=== PATIENT | male | born 1965 | race Caucasian/White ===

== ENCOUNTER 2021-11-18 00:20 | Inpatient (IN) | payer MEDICAID ==
[~2021-11-18] VITALS: Ht 175.3 cm; Wt 106.0 kg
[~2021-11-18 00:20] MED LIST: CYCL-120 PO
[2021-11-18] MEDS ORDERED: dexamethasone inj 6 MG in normal saline 50ml IV soln 50 ML IV ONE (00:30)
[2021-11-18] MEDS ORDERED: acetaminophen 325mg tablet PO ONE (00:45)
[2021-11-18 01:09] LABS: BASOPHILS # (AUTO) 0.1 X10'3 (0-0.2); BASOPHILS % (AUTO) 1.4 % (0-1); EOSINOPHILS # (AUTO) 0.3 X10'3 (0-0.9); EOSINOPHILS % (AUTO) 2.9 % (0-6); HEMATOCRIT 44.4 % (42.0-52.0); HEMOGLOBIN 15.6 g/dl (14.0-17.9); LYMPHOCYTES # (AUTO) 0.5 X10'3 (1.1-4.8); LYMPHOCYTES % (AUTO) 5.2 % (21-51); MEAN CORPUSCULAR HEMOGLOBIN 29.1 PG (27.0-31.0); MEAN CORPUSCULAR HGB CONC 35.1 g/dL (33.0-36.5); MEAN CORPUSCULAR VOLUME 83.1 FL (78-98); MEAN PLATELET VOLUME 8.2 FL (7.4-10.4); MONOCYTES # (AUTO) 0.5 X10'3 (0-0.9); MONOCYTES % (AUTO) 4.9 % (2-12); NEUTROPHILS # (AUTO) 8.7 X10'3 (1.8-7.7); NEUTROPHILS % (AUTO) 85.6 % (42-75); PLATELET COUNT 557 X10'3 (140-440); RED BLOOD COUNT 5.35 X10'6 (4.70-6.10); RED CELL DISTRIBUTION WIDTH 14.2 % (11.5-14.5); WHITE BLOOD COUNT 10.2 X10'3 (4.5-11.0)
[2021-11-18 01:18] LABS: D-DIMER 1.83 MG/L FEU (0-0.50)
[2021-11-18 01:21] LABS: ALANINE AMINOTRANSFERASE 37 U/L (12-78); ALBUMIN 2.5 G/DL (3.4-5.0); ALBUMIN/GLOBULIN RATIO 0.5 (1.1-1.5); ALKALINE PHOSPHATASE 77 IU/L (46-116); ANION GAP 10 (8-16); ASPARTATE AMINO TRANSFERASE 34 U/L (10-37); BILIRUBIN,TOTAL 0.5 MG/DL (0.1-1.0); BLOOD UREA NITROGEN 18 MG/DL (7-18); BUN/CREATININE RATIO 18.8 (5.4-32.0); CALCIUM 8.5 MG/DL (8.5-10.1); CHLORIDE 101 MMOL/L (99-107); CREATININE 0.96 MG/DL (0.60-1.10); GLUCOSE 130 MG/DL (70-104); POTASSIUM 3.9 MMOL/L (3.5-5.1); SODIUM 138 MMOL/L (135-145); TOTAL CARBON DIOXIDE 26.9 MMOL/L (24-32); TOTAL PROTEIN 7.2 G/DL (6.4-8.2); eGFR 82 ML/MIN
[2021-11-18 01:28] LABS: LACTATE DEHYDROGENASE 390 U/L (85-227); MAGNESIUM 1.8 MG/DL (1.5-2.4)
[2021-11-18] MEDS ORDERED: iohexol 350MG/ML 100ml bottle IV ONE (01:58)
[2021-11-18 02:34] LABS: TOTAL CELLS COUNTED 100
[2021-11-18 02:35] LABS: PLATELET ESTIMATE INCREASED
[2021-11-18 02:40] LABS: LARGE PLATELETS FEW
[2021-11-18] MEDS ORDERED: bisacodyl 10mg suppository rectal RC PRN (02:55)
[2021-11-18] MEDS ORDERED: acetaminophen 650mg rectal suppository RC PRN (02:55)
[2021-11-18] MEDS ORDERED: diphenhydrAMINE 50 mg/ml inj IV PRN (02:55)
[2021-11-18] MEDS ORDERED: ondansetron 4mg rapidly disintigrating tab PO PRN (02:55)
[2021-11-18] MEDS ORDERED: magnesium hydroxide 30ml (MOM) UD suspension PO PRN (02:55)
[2021-11-18] MEDS ORDERED: diphenhydrAMINE 25mg capsule PO PRN (02:55)
[2021-11-18] MEDS ORDERED: mag hydrox/Alum hydrox/simeth 30ml oral suspension PO PRN (02:55)
[2021-11-18] MEDS ORDERED: ipratropium/albuterol 3ml nebule NEB PRN (02:55)
[2021-11-18] MEDS ORDERED: acetaminophen 325mg tablet PO PRN ×2 (02:55)
[2021-11-18] MEDS ORDERED: morphine 2 MG/ML inj. syringe IV PRN ×2 (02:55)
[2021-11-18] MEDS ORDERED: HYDROcodone/acetaminophen 10/325mg tab PO PRN (02:55)
[2021-11-18] MEDS ORDERED: ondansetron/PF 4mg/2ml inj IV PRN (02:55)
[2021-11-18] MEDS ORDERED: dextrose 50%-water 50ml dispensing syringe IV PRN ×2 (03:00)
[2021-11-18] MEDS ORDERED: ALBUTEROL INHALER 1 PUFF/90 MCG INHALER IH PRN (03:00)
[2021-11-18] MEDS ORDERED: MESSAGE TO PHARMACY PO ONE (03:00)
[2021-11-18] MEDS ORDERED: glucagon, human recombinant 1mg kit SUBCUT PRN (03:00)
[2021-11-18] MEDS ORDERED: dextrose ORAL solution 15 GM/59 ML bottle PO PRN ×2 (03:00)
[2021-11-18] MEDS ORDERED: METF-436 PO (03:08)
[2021-11-18] MEDS ORDERED: GABA300C PO (03:08)
[2021-11-18] MEDS: normal saline 1000ml 1,000 ML IV SCH ×2 (03:15→09:01)
[2021-11-18 04:11] LABS: HEMOGLOBIN A1C 7.3 % (4.5-6.2)
[2021-11-18 04:14] LABS: APTT 30 SECONDS (22-32)
[2021-11-18 04:20] LABS: PHOSPHORUS 3.1 MG/DL (2.3-4.5)
[2021-11-18 04:51] LABS: CREATINE KINASE 37 U/L (39-308); LIPASE 107 U/L (73-393)
[2021-11-18] MEDS ORDERED: dexamethasone 4mg/ml inj IV SCH (08:00)
[2021-11-18] MEDS: docusate sod 100mg capsule PO SCH ×2 (08:00→19:48)
[2021-11-18 08:24] LABS: CLARITY,URINE CLEAR (Clear); COLOR,URINE YELLOW (Yellow); GLUCOSE, URINE 100 mg/dl (Neg); KETONES,URINE NEGATIVE (Neg); LEUKOCYTE ESTERASE ,URINE NEGATIVE (Neg); NITRITES, URINE NEGATIVE (Neg); OCCULT BLOOD,URINE NEGATIVE (Neg); PH,URINE 6.5 (4.8-8.0); PROTEIN,URINE TRACE mg/dl (Neg); UROBILINOGEN,URINE >=8.0 E.U/dL (0.2-1.0)
[2021-11-18 08:28] LABS: UA COLLECTION TYPE NON-SPECIFIED
[2021-11-18 08:29] LABS: BACTERIA,URINE FEW /HPF (Neg); CAL OXALATE CRYSTALS 2+ /HPF (NEGATIVE); HYALINE CASTS 0-3 /LPF (NEGATIVE); MUCUS STRANDS FEW /LPF (Neg); SQUAMOUS EPITHELIAL CELL,UR FEW /LPF (FEW)
[2021-11-18 08:30] LABS: RBC,URINE 0-2 /HPF (0-2); WBC,URINE 0-4 /HPF (0-4)
[2021-11-18] MEDS: CefTRIAXone/D5W-Rocephin 1gm 50 ML IV SCH (08:56)
[2021-11-18] MEDS: enoxaparin 60mg/0.6ml syringe SUBCUT SCH ×2 (08:56→20:04)
[2021-11-18] MEDS: pantoprazole 40mg Tablet.DR PO SCH (08:57)
[2021-11-18] MEDS: gabapentin 300mg capsule PO SCH ×2 (08:57→20:04)
[2021-11-18 09:00] VITALS: BP 111/65
[2021-11-18] MEDS: azithromycin/NS 500mg/250ml 250 ML IV SCH (09:54)
[2021-11-18 10:10] VITALS: BP 115/70
[2021-11-18] MEDS: dexamethasone inj 6 MG in normal saline 50ml IV soln 50 ML IV SCH ×2 (11:40→20:04)
[2021-11-18] MEDS ORDERED: FLU VACC QS2021-22(6MOS UP)/PF 60 MCG/0.5 ML SYRINGE IM ONE (12:50)
[2021-11-18] MEDS ORDERED: COVID-19 VACC, MRNA(PFIZER)/PF--BNT162b2 syringe IMVAC ONE (12:50)
[2021-11-18 14:06] VITALS: BP 130/70
--- NOTE | 2021-11-18 15:03 | NUR ---
DM Consult "New DM- pt states he was 'prediabetic' before": Pt admit DX COVID-19 bilateral PNA, acute respiratory failure secondary to hypoxia, T2DM A1C 7.3%, HTN, and chronic pain syndrome per EMR. SÁNCHEZ d/w RN who reports pt not seen by physician yet for official DM DX and pt reports typically eats whatever he wants at home. Noted pt takes metformin BID [employer] per EMR. Pt PO 100% initial meals on 4L NC per EMR; double protein BIDLD added to meals for satiety; dietary notified. [facility] 11/16. Will monitor for DM ed needs following physician DX and further nutrition intervention needs this admit. Rec: 1. continue carb controlled diet; double protein BIDLD for satiety 2. routine bowel care 3. weekly wts Addendum: 11/18/21 at [address] Amended: Links added.
--- NOTE | 2021-11-18 15:45 | NUR ---
Stepdaughter updated x 1 today
[2021-11-18 18:00] VITALS: BP 134/76
--- NOTE | 2021-11-18 18:12 | NUR ---
Gave report to Isabella BONILLA
[2021-11-18] MEDS: insulin glargine (Lantus) pen - multi-dose SQ SCH (21:00)
[2021-11-18 22:00] VITALS: BP 121/59
[2021-11-18] MEDS: temazepam 15mg capsule PO PRN (22:35)
[2021-11-19 02:00] VITALS: BP 132/68
--- NOTE | 2021-11-19 03:00 | NUR ---
Took over care of patient at this time
[2021-11-19 06:00] VITALS: BP 128/70
--- NOTE | 2021-11-19 06:29 | NUR ---
Problems reprioritized. Patient report given, questions answered & plan of care reviewed with Kristin BONILLA. Addendum: 11/19/21 at 0630 by Mickie Vincent RN Problems reprioritized. Patient report given, questions answered & plan of care reviewed with Cuong BONILLA.
[2021-11-19 06:42] LABS: BASOPHILS % (AUTO) 0.3 % (0-1); EOSINOPHILS % (AUTO) 0.2 % (0-6); HEMOGLOBIN 11.3 g/dl (14.0-17.9); LYMPHOCYTES # (AUTO) 0.5 X10'3 (1.1-4.8); LYMPHOCYTES % (AUTO) 6.1 % (21-51); MEAN CORPUSCULAR HEMOGLOBIN 28.8 PG (27.0-31.0); MEAN CORPUSCULAR HGB CONC 34.3 g/dL (33.0-36.5); MEAN CORPUSCULAR VOLUME 83.7 FL (78-98); MEAN PLATELET VOLUME 8.4 FL (7.4-10.4); MONOCYTES # (AUTO) 0.5 X10'3 (0-0.9); MONOCYTES % (AUTO) 5.2 % (2-12); NEUTROPHILS # (AUTO) 7.9 X10'3 (1.8-7.7); NEUTROPHILS % (AUTO) 88.2 % (42-75); PLATELET COUNT 451 X10'3 (140-440); RED BLOOD COUNT 3.94 X10'6 (4.70-6.10); RED CELL DISTRIBUTION WIDTH 14.1 % (11.5-14.5); WHITE BLOOD COUNT 8.9 X10'3 (4.5-11.0)
[2021-11-19 06:43] LABS: D-DIMER 2.26 MG/L FEU (0-0.50)
[2021-11-19] MEDS: enoxaparin 60mg/0.6ml syringe SUBCUT SCH ×2 (07:56→20:04)
[2021-11-19] MEDS: azithromycin/NS 500mg/250ml 250 ML IV SCH (07:56)
[2021-11-19] MEDS: nicotine 21mg patch - 24 hr TD SCH (07:56)
[2021-11-19] MEDS: gabapentin 300mg capsule PO SCH ×2 (07:56→20:03)
[2021-11-19] MEDS: pantoprazole 40mg Tablet.DR PO SCH (07:56)
[2021-11-19] MEDS: docusate sod 100mg capsule PO SCH ×2 (07:56→20:03)
[2021-11-19] MEDS: CefTRIAXone/D5W-Rocephin 1gm 50 ML IV SCH (07:56)
[2021-11-19] MEDS: dexamethasone inj 6 MG in normal saline 50ml IV soln 50 ML IV SCH ×2 (07:57→20:02)
[2021-11-19] MEDS: insulin Lispro (HumaLOG) vial - multi-dose SQ SCH ×3 (08:38→20:00)
[2021-11-19] MEDS: normal saline 1000ml 1,000 ML IV SCH ×3 (08:55→18:55)
[2021-11-19 09:40] LABS: ALANINE AMINOTRANSFERASE 29 U/L (12-78); ALBUMIN 2.2 G/DL (3.4-5.0); ALBUMIN/GLOBULIN RATIO 0.5 (1.1-1.5); ALKALINE PHOSPHATASE 62 IU/L (46-116); ANION GAP 7 (8-16); ASPARTATE AMINO TRANSFERASE 22 U/L (10-37); BILIRUBIN,TOTAL 0.2 MG/DL (0.1-1.0); BLOOD UREA NITROGEN 19 MG/DL (7-18); BUN/CREATININE RATIO 24.1 (5.4-32.0); C-REACTIVE PROTEIN 5.23 MG/DL (0.0-0.5); CALCIUM 8.3 MG/DL (8.5-10.1); CHLORIDE 107 MMOL/L (99-107); CHOL/HDL RATIO 4.9 (0.00-4.99); CHOLESTEROL 122 MG/DL (0-200); CREATININE 0.79 MG/DL (0.60-1.10); GLUCOSE 182 MG/DL (70-104); HDL CHOLESTEROL 25 MG/DL (35-60); LDL CHOLESTEROL 79 MG/DL (50-100); POTASSIUM 4.3 MMOL/L (3.5-5.1); SODIUM 140 MMOL/L (135-145); TOTAL CARBON DIOXIDE 25.6 MMOL/L (24-32); TOTAL PROTEIN 6.3 G/DL (6.4-8.2); TRIGLYCERIDES 116 MG/DL (20-135); eGFR > 90 ML/MIN
[2021-11-19 10:00] VITALS: BP 133/71
[2021-11-19 15:00] VITALS: BP 134/70
--- NOTE | 2021-11-19 15:23 | NUR ---
F/u 11/19: SÁNCHEZ TC to RN regarding if pt aware of new DM DX by physician. RN reports pt still believes he's pre-diabetic not aware of new DM at this time. RN reports pt ordered pizza last night likely why only 25% dinner intake in EMR. Would benefit from DM ed once pt notified of DM DX by physician. Addendum: 11/19/21 at [address] Amended: Links added.
--- NOTE | 2021-11-19 16:30 | NUR ---
Friend dropped off pt's wallet with credit card and debit card at [employer] which was brought to pt's room by nursing staff. Pt said he will keep it at bedside for now as he needs to pay his bills.
[2021-11-19 18:00] VITALS: BP 139/69
[2021-11-19] MEDS: lactobacillus rhamnosus 10,000 MMU CELLS/CAPSULE PO SCH (20:03)
[2021-11-19 22:00] VITALS: BP 152/86
[2021-11-19] MEDS: insulin glargine (Lantus) pen - multi-dose SQ SCH (23:02)
[2021-11-20 02:00] VITALS: BP 131/73
[2021-11-20] MEDS: normal saline 1000ml 1,000 ML IV SCH (04:55)
[2021-11-20 06:00] VITALS: BP 137/73
--- NOTE | 2021-11-20 06:30 | NUR ---
Patient in room [facility]TH[facility] 4023. I have received report from CHAD Hsu and had the opportunity to ask questions and assume patient care.
[2021-11-20 07:00] LABS: BASOPHILS # (AUTO) 0.1 X10'3 (0-0.2); BASOPHILS % (AUTO) 0.7 % (0-1); EOSINOPHILS % (AUTO) 0.1 % (0-6); HEMATOCRIT 39.2 % (42.0-52.0); HEMOGLOBIN 13.4 g/dl (14.0-17.9); MEAN CORPUSCULAR HEMOGLOBIN 28.3 PG (27.0-31.0); MEAN CORPUSCULAR VOLUME 83.1 FL (78-98); MEAN PLATELET VOLUME 8.6 FL (7.4-10.4); MONOCYTES # (AUTO) 0.8 X10'3 (0-0.9); MONOCYTES % (AUTO) 6.5 % (2-12); NEUTROPHILS # (AUTO) 10.4 X10'3 (1.8-7.7); NEUTROPHILS % (AUTO) 84.7 % (42-75); PLATELET COUNT 556 X10'3 (140-440); RED BLOOD COUNT 4.72 X10'6 (4.70-6.10); RED CELL DISTRIBUTION WIDTH 14.1 % (11.5-14.5); WHITE BLOOD COUNT 12.3 X10'3 (4.5-11.0)
[2021-11-20 07:11] LABS: ALANINE AMINOTRANSFERASE 36 U/L (12-78); ALBUMIN 2.2 G/DL (3.4-5.0); ALBUMIN/GLOBULIN RATIO 0.6 (1.1-1.5); ALKALINE PHOSPHATASE 70 IU/L (46-116); ANION GAP 10 (8-16); ASPARTATE AMINO TRANSFERASE 19 U/L (10-37); BILIRUBIN,TOTAL 0.3 MG/DL (0.1-1.0); BLOOD UREA NITROGEN 21 MG/DL (7-18); BUN/CREATININE RATIO 30.4 (5.4-32.0); C-REACTIVE PROTEIN 1.84 MG/DL (0.0-0.5); CALCIUM 8.6 MG/DL (8.5-10.1); CHLORIDE 109 MMOL/L (99-107); CREATININE 0.69 MG/DL (0.60-1.10); GLUCOSE 190 MG/DL (70-104); POTASSIUM 4.2 MMOL/L (3.5-5.1); SODIUM 141 MMOL/L (135-145); TOTAL CARBON DIOXIDE 22.1 MMOL/L (24-32); TOTAL PROTEIN 6.1 G/DL (6.4-8.2); eGFR > 90 ML/MIN
[2021-11-20] MEDS: CefTRIAXone/D5W-Rocephin 1gm 50 ML IV SCH (08:09)
[2021-11-20] MEDS: pantoprazole 40mg Tablet.DR PO SCH (08:09)
[2021-11-20] MEDS: docusate sod 100mg capsule PO SCH ×2 (08:09→21:27)
[2021-11-20] MEDS: dexamethasone inj 6 MG in normal saline 50ml IV soln 50 ML IV SCH ×2 (08:09→21:27)
[2021-11-20] MEDS: nicotine 21mg patch - 24 hr TD SCH (08:09)
[2021-11-20] MEDS: lactobacillus rhamnosus 10,000 MMU CELLS/CAPSULE PO SCH ×2 (08:09→21:28)
[2021-11-20] MEDS: enoxaparin 60mg/0.6ml syringe SUBCUT SCH (08:09)
[2021-11-20] MEDS: gabapentin 300mg capsule PO SCH ×2 (08:09→21:28)
[2021-11-20] MEDS: insulin Lispro (HumaLOG) vial - multi-dose SQ SCH ×3 (09:53→19:04)
[2021-11-20] MEDS ORDERED: pneumococcal 23-VAL P-sac vacc 25 mcg/0.5ml vial IMVAC ONE (10:00)
[2021-11-20] MEDS ORDERED: FLU VACC QS2021-22(6MOS UP)/PF 60 MCG/0.5 ML SYRINGE IM ONE (10:00)
[2021-11-20 11:00] VITALS: BP 134/72
[2021-11-20] MEDS: HYDROcodone/acetaminophen 5mg/325mg tablet PO PRN (13:23)
[2021-11-20 15:00] VITALS: BP 149/80
[2021-11-20 17:36] VITALS: BP 133/86
--- NOTE | 2021-11-20 18:24 | NUR ---
Problems reprioritized. Patient report given, questions answered & plan of care reviewed with CHAD Donahue.
[2021-11-20] MEDS: enoxaparin 40mg/0.4ml syringe SUBCUT SCH (21:28)
[2021-11-20] MEDS: insulin glargine (Lantus) pen - multi-dose SQ SCH (21:34)
[2021-11-20 22:00] VITALS: BP 141/82
[2021-11-21 02:00] VITALS: BP 127/68
[2021-11-21] MEDS: normal saline 1000ml 1,000 ML IV SCH ×2 (05:24→16:30)
[2021-11-21 06:10] VITALS: BP 112/71
--- NOTE | 2021-11-21 06:17 | NUR ---
Problems reprioritized. Patient report given, questions answered & plan of care reviewed with CHAD SZYMANSKI.
--- NOTE | 2021-11-21 06:30 | NUR ---
Patient in room ORTHO 4023. I have received report from Neena BONILLA and had the opportunity to ask questions and assume patient care.
[2021-11-21 07:31] LABS: D-DIMER 1.99 MG/L FEU (0-0.50)
[2021-11-21 07:32] LABS: BASOPHILS # (AUTO) 0.1 X10'3 (0-0.2); BASOPHILS % (AUTO) 0.8 % (0-1); EOSINOPHILS % (AUTO) 0.1 % (0-6); HEMATOCRIT 44.2 % (42.0-52.0); HEMOGLOBIN 15.2 g/dl (14.0-17.9); LYMPHOCYTES # (AUTO) 1.2 X10'3 (1.1-4.8); LYMPHOCYTES % (AUTO) 11.8 % (21-51); MEAN CORPUSCULAR HEMOGLOBIN 28.7 PG (27.0-31.0); MEAN CORPUSCULAR HGB CONC 34.3 g/dL (33.0-36.5); MEAN CORPUSCULAR VOLUME 83.7 FL (78-98); MEAN PLATELET VOLUME 8.4 FL (7.4-10.4); MONOCYTES # (AUTO) 0.8 X10'3 (0-0.9); MONOCYTES % (AUTO) 7.7 % (2-12); NEUTROPHILS # (AUTO) 8.2 X10'3 (1.8-7.7); NEUTROPHILS % (AUTO) 79.6 % (42-75); PLATELET COUNT 558 X10'3 (140-440); RED BLOOD COUNT 5.28 X10'6 (4.70-6.10); RED CELL DISTRIBUTION WIDTH 14.4 % (11.5-14.5); WHITE BLOOD COUNT 10.3 X10'3 (4.5-11.0)
[2021-11-21] MEDS: gabapentin 300mg capsule PO SCH ×2 (07:35→21:00)
[2021-11-21] MEDS: CefTRIAXone/D5W-Rocephin 1gm 50 ML IV SCH (07:35)
[2021-11-21] MEDS: enoxaparin 40mg/0.4ml syringe SUBCUT SCH ×2 (07:35→21:00)
[2021-11-21] MEDS: nicotine 21mg patch - 24 hr TD SCH (07:35)
[2021-11-21] MEDS: dexamethasone inj 6 MG in normal saline 50ml IV soln 50 ML IV SCH ×2 (07:35→21:00)
[2021-11-21] MEDS: docusate sod 100mg capsule PO SCH ×2 (07:36→21:00)
[2021-11-21] MEDS: lactobacillus rhamnosus 10,000 MMU CELLS/CAPSULE PO SCH ×2 (07:36→21:00)
[2021-11-21] MEDS: pantoprazole 40mg Tablet.DR PO SCH (07:36)
[2021-11-21 07:54] LABS: ALANINE AMINOTRANSFERASE 70 U/L (12-78); ALBUMIN 2.5 G/DL (3.4-5.0); ALBUMIN/GLOBULIN RATIO 0.6 (1.1-1.5); ALKALINE PHOSPHATASE 67 IU/L (46-116); ANION GAP 9 (8-16); ASPARTATE AMINO TRANSFERASE 42 U/L (10-37); BILIRUBIN,TOTAL 0.4 MG/DL (0.1-1.0); BLOOD UREA NITROGEN 18 MG/DL (7-18); BUN/CREATININE RATIO 22.2 (5.4-32.0); C-REACTIVE PROTEIN 0.76 MG/DL (0.0-0.5); CALCIUM 8.9 MG/DL (8.5-10.1); CHLORIDE 106 MMOL/L (99-107); CREATININE 0.81 MG/DL (0.60-1.10); GLUCOSE 120 MG/DL (70-104); POTASSIUM 4.9 MMOL/L (3.5-5.1); SODIUM 143 MMOL/L (135-145); TOTAL CARBON DIOXIDE 27.8 MMOL/L (24-32); eGFR > 90 ML/MIN
[2021-11-21] MEDS: insulin Lispro (HumaLOG) vial - multi-dose SQ SCH ×3 (09:30→19:12)
[2021-11-21 10:00] VITALS: BP 116/74
[2021-11-21 14:00] VITALS: BP 133/79
[2021-11-21] MEDS: levoFLOXACIN-Levaquin 500mg/D5 100 ML IV SCH (16:32)
[2021-11-21 18:00] VITALS: BP 133/82
[2021-11-21] MEDS: HYDROcodone/acetaminophen 5mg/325mg tablet PO PRN (19:25)
[2021-11-21] MEDS: temazepam 15mg capsule PO PRN (21:00)
[2021-11-21] MEDS: insulin glargine (Lantus) pen - multi-dose SQ SCH (21:09)
[2021-11-21 22:00] VITALS: BP 124/91
[2021-11-22 02:00] VITALS: BP 132/76
[2021-11-22] MEDS: normal saline 1000ml 1,000 ML IV SCH ×2 (04:05→06:55)
[2021-11-22 06:00] VITALS: BP 136/80
--- NOTE | 2021-11-22 06:28 | NUR ---
Problems reprioritized. Patient report given, questions answered & plan of care reviewed with CHAD SULLIVAN.
--- NOTE | 2021-11-22 06:30 | NUR ---
Patient in room ORTHO 4023B. I have received report from CHAD Chaudhary and had the opportunity to ask questions and assume patient care.
[2021-11-22] MEDS: levoFLOXACIN-Levaquin 500mg/D5 100 ML IV SCH (07:04)
[2021-11-22] MEDS: nicotine 21mg patch - 24 hr TD SCH (07:04)
[2021-11-22] MEDS: pantoprazole 40mg Tablet.DR PO SCH (07:05)
[2021-11-22] MEDS: enoxaparin 40mg/0.4ml syringe SUBCUT SCH (07:05)
[2021-11-22] MEDS: lactobacillus rhamnosus 10,000 MMU CELLS/CAPSULE PO SCH (07:05)
[2021-11-22] MEDS: gabapentin 300mg capsule PO SCH (07:05)
[2021-11-22] MEDS: docusate sod 100mg capsule PO SCH (07:05)
[2021-11-22 07:25] LABS: LYMPHOCYTES # (AUTO) 1.5 X10'3 (1.1-4.8); MEAN PLATELET VOLUME 8.4 FL (7.4-10.4); MONOCYTES # (AUTO) 0.7 X10'3 (0-0.9); RED CELL DISTRIBUTION WIDTH 14.2 % (11.5-14.5); WHITE BLOOD COUNT 10.7 X10'3 (4.5-11.0)
[2021-11-22 07:26] LABS: HEMATOCRIT 42.7 % (42.0-52.0); HEMOGLOBIN 14.5 g/dl (14.0-17.9); MEAN CORPUSCULAR HEMOGLOBIN 28.6 PG (27.0-31.0); MEAN CORPUSCULAR VOLUME 83.9 FL (78-98); RED BLOOD COUNT 5.09 X10'6 (4.70-6.10)
[2021-11-22 07:33] LABS: BASOPHILS % (AUTO) 0 % (0-1); EOSINOPHILS % (AUTO) 0.2 % (0-6); MONOCYTES % (AUTO) 6.8 % (2-12); NEUTROPHILS # (AUTO) 8.4 X10'3 (1.8-7.7); PLATELET COUNT 512 X10'3 (140-440)
[2021-11-22 07:53] LABS: D-DIMER 1.54 MG/L FEU (0-0.50)
[2021-11-22 08:10] LABS: ALANINE AMINOTRANSFERASE 113 U/L (12-78); ALBUMIN 2.4 G/DL (3.4-5.0); ALBUMIN/GLOBULIN RATIO 0.6 (1.1-1.5); ALKALINE PHOSPHATASE 71 IU/L (46-116); ANION GAP 9 (8-16); ASPARTATE AMINO TRANSFERASE 50 U/L (10-37); BILIRUBIN,TOTAL 0.4 MG/DL (0.1-1.0); BLOOD UREA NITROGEN 20 MG/DL (7-18); BUN/CREATININE RATIO 28.2 (5.4-32.0); C-REACTIVE PROTEIN 0.32 MG/DL (0.0-0.5); CALCIUM 8.6 MG/DL (8.5-10.1); CHLORIDE 107 MMOL/L (99-107); CREATININE 0.71 MG/DL (0.60-1.10); GLUCOSE 118 MG/DL (70-104); POTASSIUM 4.7 MMOL/L (3.5-5.1); SODIUM 142 MMOL/L (135-145); TOTAL CARBON DIOXIDE 26.2 MMOL/L (24-32); TOTAL PROTEIN 6.3 G/DL (6.4-8.2); eGFR > 90 ML/MIN
[2021-11-22] MEDS: dexamethasone inj 6 MG in normal saline 50ml IV soln 50 ML IV SCH (08:19)
[2021-11-22] MEDS: CefTRIAXone/D5W-Rocephin 1gm 50 ML IV SCH (08:39)
[2021-11-22] MEDS: insulin Lispro (HumaLOG) vial - multi-dose SQ SCH ×2 (08:42→13:03)
[2021-11-22 10:00] VITALS: BP 133/82
--- NOTE | 2021-11-22 11:15 | NUR ---
O2 Sat at rest on room air:_87_% If below 89%: Recovery O2 Sat at rest on _3_LPM:__91_%:___% via____nasal cannula____(mask/nasal cannula, etc..) No further documentation is necessary. If O2 Sat did not drop below 89% on room air,ambulate patient on room air. O2 Sat while ambulating on room air:___% Recovery O2 Sat while ambulating on ___LPM:___% No further documentation is necessary. If patient does not drop below 89% while ambulating, he/she does not qualify for home O2.
[2021-11-22] MEDS ORDERED: ALBU6.7H9 IH (11:55)
[2021-11-22] MEDS ORDERED: DEC4T PO (11:56)
[2021-11-22] MEDS ORDERED: LEVO500T90 PO (11:57)
[2021-11-22] MEDS ORDERED: PANT-47 PO (11:58)
[2021-11-22 12:11] LABS: TOTAL CELLS COUNTED 100
[2021-11-22 12:12] LABS: PLATELET ESTIMATE INCREASED
[2021-11-22 14:00] VITALS: BP 120/84
--- NOTE | 2021-11-22 16:14 | NUR ---
F/u 11/22: Pt in process of discharge at this time per EMR/RN. Per RN pt is aware of DM DX; to continue metformin at home per MD note. Pt remains in COVID-19 isolation on 3-4L NC per EMR. RD mailed written DM ed w/ RD contact information to pt home address in EMR. Addendum: 11/22/21 at [address] Amended: Links added.
--- NOTE | 2021-11-22 16:38 | NUR ---
d/c instructions given, questions answered. belongings gathered by aide and sent with pt. oxygen arrived and sent with pt. iv d/c'd, cannula intact, no complications. d/c'd pt in stable condition to home in private vehicle accompanied by significant other. pt left floor at 1620.
== END 2021-11-22 16:30 | disposition home or self-care (01) | DRG 137 ==
LOC: ER 00:21 → ED HOLD 02:59 → ORTHO 4S 07:33
PROVIDERS: ADMIT Family Medicine; ATTEND Family Medicine
PROC: B32T1ZZ Computerized Tomography (CT Scan) of Left Pulmonary Artery using Low Osmolar Contrast (ICD-10-PCS; principal; 2021-11-18)
PROC: B3201ZZ Computerized Tomography (CT Scan) of Thoracic Aorta using Low Osmolar Contrast (ICD-10-PCS; 2021-11-18)
PROC: B32S1ZZ Computerized Tomography (CT Scan) of Right Pulmonary Artery using Low Osmolar Contrast (ICD-10-PCS; 2021-11-18)
DX: U07.1 COVID-19 (principal); J96.01 Acute respiratory failure with hypoxia; J12.82 Pneumonia due to coronavirus disease 2019; E11.9 Type 2 diabetes mellitus without complications; M54.9 Dorsalgia, unspecified; G89.4 Chronic pain syndrome; I10 Essential (primary) hypertension; K21.9 Gastro-esophageal reflux disease without esophagitis; Z79.84 Long term (current) use of oral hypoglycemic drugs; Z28.21 Immunization not carried out because of patient refusal; Z79.899 Other long term (current) drug therapy; Z98.52 Vasectomy status
CPT/HCPCS: 36415; 71045; 71275; 80053; 80061; 81001; 82550; 82948; 83036; 83615; 83690; 83735; 83880; 84100; 84145; 84443; 84484; 85007; 85025; 85379; 85610; 85730; 86140; 87081; 87635; 93005; 93306; 94760; 99285; C9803; G0378; J0456; J0696; J1100; J1650; J1815; J1956; J3490; J7030; Q9967